=== PATIENT | female | born 1950 | race Caucasian/White ===

== ENCOUNTER 2018-03-24 14:33 | Inpatient (IN) | payer OTHER, MEDICAID ==
[~2018-03-24] VITALS: Ht 165.1 cm; Wt 88.9 kg
--- NOTE | 2018-03-24 14:36 | NUR ---
PT AMBULATECD TO ER BED 05
[2018-03-24 14:40] VITALS: BP 139/86
--- NOTE | 2018-03-24 14:40 | NUR ---
67Y/F BIB SELF C/O SOB TODAY; JUST D/C FROM [place] FOR THE SAME S/S; EXPIRATORY WHZ LOWER LOBES; EVEN AND UNLABORED BREATHING AT THIS TIME; PT IS ON MONITOR AT THIS TIME; 10/10 PAIN SCALE; PAIN AT THE NECK; VSS AT THIS TIME; BED DOWN; BEDRAIL UP X 1; ER MD AWARE AND NOTIFIED OF PT STATUS. HX; ASTHMA COPD, ANXIETY RX; ZOLOFT, KEPRA
[2018-03-24] MEDS ORDERED: ALBUTEROL 0.083% 2.5 MG/3 ML NEBU INH ONE (14:45)
--- NOTE | 2018-03-24 14:46 | NUR ---
Patient being evaluated by physician at bedside.
[2018-03-24] MEDS ORDERED: LORazepam 2 MG/ML VIAL IM ONE (14:50)
[2018-03-24 16:03] LABS: BASOPHILS # (AUTO) 0.1 K/uL (0.00-0.22); BASOPHILS % (AUTO) 1.4 % (0.0-2.0); EOSINOPHILS # (AUTO) 0.2 K/uL (0-0.4); EOSINOPHILS % (AUTO) 2.4 % (0.0-4.0); HEMATOCRIT 39.8 % (36-48); HEMOGLOBIN 12.8 g/dL (12.0-16.0); LYMPHOCYTES # (AUTO) 0.5 K/uL (2.5-16.5); LYMPHOCYTES % (AUTO) 5.9 % (20.5-51.1); MEAN CORPUSCULAR HEMOGLOBIN 24 pg (27-31); MEAN CORPUSCULAR HGB CONC 32 g/dL (33-37); MEAN CORPUSCULAR VOLUME 73.1 fL (80-94); MONOCYTES # (AUTO) 0.2 K/uL (0.8-1.0); MONOCYTES % (AUTO) 1.8 % (1.7-9.3); NEUTROPHILS # (AUTO) 7.4 K/uL (1.8-7.7); NEUTROPHILS % (AUTO) 88.5 % (42.2-75.2); PLATELET COUNT (AUTO) 281 K/uL (140-450); RED BLOOD CELL COUNT(AUTO) 5.45 MIL/uL (4.20-5.40); RED CELL DISTRIBUTION WIDTH 18.8 % (11.6-13.7); WHITE BLOOD COUNT (AUTO) 8.3 K/uL (4.8-10.8)
--- NOTE | 2018-03-24 16:19 | NUR ---
PT DENIES IV MANAGEMENT AT THIS TIME
[2018-03-24] MEDS ORDERED: ONDANSETRON 4 MG/2 ML VIAL IM/IVP PRN (16:20)
[2018-03-24] MEDS ORDERED: HYDROcodone/APAP 7.5/325 MG 1 TAB PO PRN (16:20)
[2018-03-24] MEDS ORDERED: ACETAMINOPHEN 325 MG TAB PO PRN (16:20)
[2018-03-24] MEDS ORDERED: DOCUSATE SODIUM 100 MG GELCAP PO PRN (16:20)
[2018-03-24 16:32] LABS: CARBON DIOXIDE 21.3 mmol/L (21-32); CREATININE 0.8 mg/dL (0.6-1.3); POTASSIUM 3.3 mmol/L (3.5-5.1)
[2018-03-24 16:33] LABS: APPEARANCE,URINE CLEAR (CLEAR); BILIRUBIN,URINE NEGATIVE (NEGATIVE); BLOOD, URINE NEGATIVE (NEGATIVE); COLOR,URINE YELLOW (YELLOW); LEUKOCYTE ESTERASE ,URINE NEGATIVE (NEGATIVE); NITRITE, URINE NEGATIVE (NEGATIVE); PH,URINE 7.5 (5.0-9.0); UGLUCOSE NEGATIVE (NEGATIVE)
[2018-03-24 16:35] LABS: ALBUMIN 3.7 g/dL (3.4-5.0); TOTAL BILIRUBIN 0.5 mg/dL (0.0-1.0)
[2018-03-24 16:46] LABS: PROTHROMBIN TIME 10.4 secs (10.8-13.4)
[2018-03-24 16:48] LABS: BARBITURATE, URINE NEG. ng/ml (NEG <=200); BENZODIAZEPINE, URINE NEG. ng/mL (NEG <=200); CANNABINOID, URINE NEG. ng/mL (NEG <=50); COCAINE, URINE NEG. ng/mL (NEG <=300); OPIATE, URINE NEG. ng/mL (NEG <=2000); PHENCYCLIDINE SCREEN,URINE NEG. ng/mL (NEG <=25)
[2018-03-24 17:00] LABS: FREE T4 (FREE THYROXINE) 1.2 ng/dL (0.76-1.46); MAGNESIUM 1.7 mg/dL (1.8-2.4); PHOSPHORUS 1.3 mg/dL (2.5-4.9); THYROID STIMULATING HORMONE 1.63 uIU/mL (0.34-3.74)
--- NOTE | 2018-03-24 17:25 | NUR ---
Patient will be admitted to care of dr best. Admited to tele floor. Will go to room 106-b. Belongings list completed. Report to tory james.
[2018-03-24] MEDS ORDERED: NITROGLYCERIN 0.4 MG TAB SL PRN (17:30)
--- NOTE | 2018-03-24 17:35 | NUR ---
RECEIVED BEDSIDE REPORT FROM OR NURSE. PATIENT IS AWAKE, ALERT AND ORIENTEDX4. FALL RISK PROTOCOL IN PLACE BECAUSE HX OF FALL. SCABS ON LEGS. IV ON R HAND 24G SALINE LOCK. CLEAN, DRY AND INTACT. ASPIRATION PRECAUTION. PATIENT AMBULATES W ASSIST. NO SIGNS OF DISTRESS ON ROOM AIR. VITALS ARE WITHIN NORMAL LIMITS. MRSA DONE. BED IN LOW POSITION. CALL LIGHT WITHIN REACH. WILL CONTINUE TO MONITOR THE PATIENT
[2018-03-24] MEDS ORDERED: KEP500 PO (17:47)
[2018-03-24] MEDS ORDERED: SERT100T PO (17:47)
[2018-03-24] MEDS ORDERED: ALBU0.0912 IH (17:47)
[2018-03-24] MEDS ORDERED: ZOLPIDEM 5 MG TAB PO PRN (17:50)
--- NOTE | 2018-03-24 18:00 | NUR ---
SAID OK TO GIVE PATIENT ICE CHIPS. PATIENT TOLERATING WELL. BED IN LOW POSITION. CALL LIGHT WITHIN REACH. WILL CONTINUE TO MONITOR
[2018-03-24 18:10] VITALS: BP 129/88
[2018-03-24] MEDS ORDERED: MAGNESIUM OXIDE 400 MG TAB PO SCH (18:45)
[2018-03-24] MEDS ORDERED: POTASSIUM CHLORIDE 10 MEQ TABER PO SCH (19:00)
[2018-03-24] MEDS ORDERED: SODIUM PHOS / POTASSIUM PHOS 1 PKT PDR PO SCH (19:00)
--- NOTE | 2018-03-24 19:05 | NUR ---
GAVE BEDSIDE REPORT TO WARP PREPARER NURSE. PATIENT ENDORSED IN STABLE CONDITION.
--- NOTE | 2018-03-24 19:10 | NUR ---
RECEIVED PT FROM WAI HUGHES AAOX4 ON BED REST DENIES ANY CHEST PAIN ON IV ON RT HAND INFUSING , ON TELEMETRY ST PT IS ORIENTED TO THE FLOOR CALL LIGHT WITHIN REACH
[2018-03-24] MEDS: ALBUTEROL SULFATE/IPRATROPIU 3 ML SOL IH SCH (19:30)
[2018-03-24] MEDS: NACL 0.9% 1,000 ML IV SCH (19:33)
[2018-03-24 20:00] VITALS: BP 131/85
[2018-03-24] MEDS: METOPROLOL 25 MG TAB PO SCH (20:28)
[2018-03-24] MEDS: levETIRAcetam 500 MG TAB PO SCH (20:29)
[2018-03-24] MEDS: LORazepam 0.5 MG TAB PO PRN (20:41)
--- NOTE | 2018-03-24 20:46 | NUR ---
PATIENT STATES SHE USES 2L OXYGEN VIA NC AT NIGHT TO SLEEP, SPOKE W/ DR LAYTON AND NASAL CANNULA 2L SETUP FOR USE WHEN PATIENT SLEEPS
[2018-03-25] VITALS: BP 96/60
--- NOTE | 2018-03-25 | NUR ---
REMAIN STBLE NOT DISTRESS NOTED ON TELEMETRY SR
[2018-03-25] MEDS: ALBUTEROL SULFATE/IPRATROPIU 3 ML SOL IH SCH ×4 (00:26→19:06)
[2018-03-25] MEDS: LORazepam 0.5 MG TAB PO PRN ×3 (03:18→18:41)
[2018-03-25 04:00] VITALS: BP 115/61
--- NOTE | 2018-03-25 04:00 | NUR ---
SPONGE BATH GIVEN LINEN CHANGED REPOSITIONED DENIES ANY CHEST PAIN ON TELEMETRY SR
--- NOTE | 2018-03-25 05:27 | NUR ---
PT SLEEPING WELL AFTER LORAZEPAN GIVEN NOT PAIN NOT DISTRESS NOTED
--- NOTE | 2018-03-25 06:27 | NUR ---
PT AWAKE AAAX4 DENIES ANY CHEST PAIN, ON TELEMETRY SR PT WILL BE ENDORSED TO DAY SHIFT NURSE FOR CONTINUITY OF CARE
--- NOTE | 2018-03-25 06:44 | NUR ---
PT REFUSED BREATHING TX DUE TO FEELING NAUSEA SHE WILL CALL FOR TX WHEN READY
[2018-03-25 07:04] LABS: BASOPHILS % (AUTO) 0.3 % (0.0-2.0); EOSINOPHILS % (AUTO) 0.5 % (0.0-4.0); HEMATOCRIT 35.1 % (36-48); HEMOGLOBIN 11.4 g/dL (12.0-16.0); LYMPHOCYTES # (AUTO) 1.8 K/uL (2.5-16.5); LYMPHOCYTES % (AUTO) 20.5 % (20.5-51.1); MEAN CORPUSCULAR HEMOGLOBIN 24 pg (27-31); MEAN CORPUSCULAR HGB CONC 33 g/dL (33-37); MEAN CORPUSCULAR VOLUME 73.5 fL (80-94); MONOCYTES # (AUTO) 0.8 K/uL (0.8-1.0); MONOCYTES % (AUTO) 8.7 % (1.7-9.3); PLATELET COUNT (AUTO) 263 K/uL (140-450); RED BLOOD CELL COUNT(AUTO) 4.77 MIL/uL (4.20-5.40); RED CELL DISTRIBUTION WIDTH 18.5 % (11.6-13.7); WHITE BLOOD COUNT (AUTO) 8.6 K/uL (4.8-10.8)
[2018-03-25 07:17] LABS: ANION GAP 9.3 (8-16); CARBON DIOXIDE 25.4 mmol/L (21-32); CREATININE 0.7 mg/dL (0.6-1.3); POTASSIUM 3.7 mmol/L (3.5-5.1)
[2018-03-25 07:43] LABS: MAGNESIUM 1.8 mg/dL (1.8-2.4)
[2018-03-25 08:00] VITALS: BP 103/61
[2018-03-25] MEDS: NACL 0.9% 1,000 ML IV SCH ×2 (08:58→21:05)
[2018-03-25] MEDS: SODIUM PHOS / POTASSIUM PHOS 1 PKT PDR PO SCH ×3 (09:00→18:39)
[2018-03-25] MEDS: LORATADINE 10 MG TAB PO SCH (09:00)
[2018-03-25] MEDS: METOPROLOL 25 MG TAB PO SCH ×2 (09:00→20:26)
[2018-03-25] MEDS: levETIRAcetam 500 MG TAB PO SCH ×2 (09:00→20:27)
[2018-03-25] MEDS: FAMOTIDINE 20 MG TAB PO SCH (09:00)
[2018-03-25] MEDS: SERTRALINE 50 MG TAB PO SCH (09:00)
[2018-03-25] MEDS: POTASSIUM CHLORIDE 10 MEQ TABER PO SCH (09:00)
[2018-03-25] MEDS: MAGNESIUM OXIDE 400 MG TAB PO SCH (09:00)
[2018-03-25] MEDS: ECOTRIN 81 MG TABEC PO SCH (09:00)
[2018-03-25] MEDS: LISINOPRIL 5 MG TAB PO SCH (09:00)
[2018-03-25] MEDS: ALBUTEROL SULFATE/IPRATROPIU 3 ML SOL IH PRN (09:22)
--- NOTE | 2018-03-25 11:00 | NUR ---
Patient having anxiety, and received ativan 0.5 mg po per do. She is resting quietly after receiving the ativan. Darrick Boyd RN
[2018-03-25 12:00] VITALS: BP 105/67
--- NOTE | 2018-03-25 15:00 | NUR ---
Patient received tylenol 650 mg earlier, for headache, 04/02, and pain is resolving. Patient is resting quietly in bed. Darrick Boyd RN
[2018-03-25] MEDS ORDERED: SIMETHICONE 80 MG TAB.CHEW PO PRN (16:30)
[2018-03-25] MEDS ORDERED: ATORVASTATIN 20 MG TAB PO SCH (17:00)
--- NOTE | 2018-03-25 18:30 | NUR ---
Patient having anxiety, and received ativan 0.5mg po per do. she has anxiety due to her sbp running low. I did tell her not to worry and that her sbp 114, when I took it. Darrick Boyd RN
--- NOTE | 2018-03-25 19:30 | NUR ---
RECEIVED REPORT FROM DAY SHIFT NURSE, SIMONE. PT IN STABLE CONDITION. PT IS A/O X4. RESTING IN BED COMFORTABLY WITH NO COMPLAINTS OF PAIN. PT ON RA. SKIN IS INTACT. IV ACCESS IN R HAND 24G WITH IVF RUNNING PER MD ORDERS. BED IS LOCKED, LOW POSITION WITH SIDE RAILS UP X2. BOARD UPDATED. CALL LIGHT IS WITHIN REACH. WILL CONTINUE TO MONITOR PT.
[2018-03-25 20:00] VITALS: BP 111/71
--- NOTE | 2018-03-25 20:50 | NUR ---
NEW IV STARTED IN L HAND 24G. IV IS PATENT AND INTACT. PT TOLERATED WELL. OTHER IV DISCONTINUED. WILL CONTINUE TO MONITOR PT.
[2018-03-25] MEDS ORDERED: MONTELUKAST SODIUM 10 MG TAB PO SCH (21:30)
--- NOTE | 2018-03-25 21:44 | NUR ---
ADMINISTERED ORDERED MEDICATION. PT TOLERATED WELL. WILL CONTINUE TO MONITOR.
[2018-03-26] VITALS: BP 102/55
[2018-03-26] MEDS: ALBUTEROL SULFATE/IPRATROPIU 3 ML SOL IH SCH ×4 (00:03→19:48)
--- NOTE | 2018-03-26 00:04 | NUR ---
PATIENT STATED SHE DOES NOT WANT DUONEB TREATMENT AT THIS TIME AND TO TOLD OFF SINCE SHE RECEIVED SINGULAIR MEDICATION EARLIER AND FEELS GOOD AND WANT TO SLEEP
--- NOTE | 2018-03-26 00:06 | NUR ---
PT REFUSED BREATHING TREATMENT D/T PT STATES SHE FEELS GOOD AFTER TAKING SINGULAIR MEDICATION. PT JUST WANTS TO SLEEP.
[2018-03-26] MEDS: LORazepam 0.5 MG TAB PO PRN ×4 (00:41→23:07)
--- NOTE | 2018-03-26 00:41 | NUR ---
PT C/O ANXIETY. ATIVAN GIVEN. WILL CONTINUE TO MONITOR PT.
--- NOTE | 2018-03-26 02:33 | NUR ---
PT ASLEEP IN BED. NO SIGNS OR SYMPTOMS OF DISTRESS. WILL CONTINUE TO MONITOR.
[2018-03-26 04:00] VITALS: BP 105/62
--- NOTE | 2018-03-26 04:05 | NUR ---
VS STABLE. PT SLEEPING WELL IN BED. NO SIGNS OF DISTRESS. ALL NEEDS ARE MET AT THIS TIME. WILL CONTINUE TO MONITOR.
[2018-03-26 06:54] LABS: ANION GAP 9.7 (8-16); CARBON DIOXIDE 25.2 mmol/L (21-32); CREATININE 0.7 mg/dL (0.6-1.3); POTASSIUM 3.9 mmol/L (3.5-5.1)
[2018-03-26 06:54] LABS: HEMATOCRIT 32.8 % (36-48); HEMOGLOBIN 10.4 g/dL (12.0-16.0); MEAN CORPUSCULAR HEMOGLOBIN 24 pg (27-31); MEAN CORPUSCULAR HGB CONC 32 g/dL (33-37); MEAN CORPUSCULAR VOLUME 74.2 fL (80-94); PLATELET COUNT (AUTO) 198 K/uL (140-450); RED BLOOD CELL COUNT(AUTO) 4.42 MIL/uL (4.20-5.40); RED CELL DISTRIBUTION WIDTH 19.1 % (11.6-13.7); WHITE BLOOD COUNT (AUTO) 7.1 K/uL (4.8-10.8)
[2018-03-26 07:19] LABS: EOSINOPHILS % (MANUAL) 4 % (0-4); LYMPHOCYTES % (MANUAL) 42 % (20-46); MONOCYTES % (MANUAL) 9 % (5-12)
--- NOTE | 2018-03-26 07:19 | NUR ---
ENDORSED PT TO DAY SHIFT NURSE FOR CONTINUITY OF CARE. PT IN STABLE CONDITION.
--- NOTE | 2018-03-26 07:20 | NUR ---
RECEIVED REPORT FROM THE PIANO ACCOMPANIST NURSE AT BEDSIDE FOR CONTINUITY OF CARE. PT IS AWAKE AND ORIENTED. INTRODUCED MYSELF AND UPDATED THE BOARD. PT IS ON TELE, AMBULATORY. ON NC 2L O2, WHEEZING. LBM: 03/25/18. L HAND 24G NS @ 60ML. V/S WITHIN NORMAL RANGE. DENIES PAIN. SKIN INTACT. C/O WETNESS AND REDNESS UNDER ARMPIT AND UNDER BREAST. WILL ASK MD FOR NYSTATIN POWDER. PER MX, CARDIAC IS CLEARED. WILL BE D/C TOMORROW. PT EXPRESSES SHE NEEDS ASSISTANCE W/ SS TO GET INTO A NEW SENIOR HOUSING. WILL CONTINUE MONITOR PT.
[2018-03-26 08:00] VITALS: BP 138/79
[2018-03-26] MEDS: levETIRAcetam 500 MG TAB PO SCH ×2 (08:37→20:09)
[2018-03-26] MEDS: METOPROLOL 25 MG TAB PO SCH ×2 (08:37→20:09)
[2018-03-26] MEDS: ECOTRIN 81 MG TABEC PO SCH (08:38)
[2018-03-26] MEDS: POTASSIUM CHLORIDE 10 MEQ TABER PO SCH (08:38)
[2018-03-26] MEDS: FAMOTIDINE 20 MG TAB PO SCH (08:38)
[2018-03-26] MEDS: MAGNESIUM OXIDE 400 MG TAB PO SCH (08:39)
[2018-03-26] MEDS: LORATADINE 10 MG TAB PO SCH (08:39)
[2018-03-26] MEDS: SERTRALINE 50 MG TAB PO SCH (08:39)
[2018-03-26] MEDS: LISINOPRIL 5 MG TAB PO SCH (08:39)
[2018-03-26] MEDS: SODIUM PHOS / POTASSIUM PHOS 1 PKT PDR PO SCH ×2 (08:40→12:04)
--- NOTE | 2018-03-26 08:51 | NUR ---
ADMINISTERED MORNING MEDS. PT TOLERATED WELL. DR NARVAEZ CAME IN AND ASSESSED PT. WILL CONTINUITY OF CARE.
--- NOTE | 2018-03-26 10:34 | NUR ---
PATIENT HAS BEEN SCREENED AND CATEGORIZED MODERATE NUTRITION RISK. PATIENT WILL BE SEEN WITHIN 3-5 DAYS OF ADMISSION. 03/27/18 03/29/18 FAIZA PATEL MBA, RD
[2018-03-26] MEDS: NYSTATIN/TRIAMCINOLONE CRM 15 GM TUBE TP SCH ×2 (11:16→20:15)
--- NOTE | 2018-03-26 11:20 | NUR ---
PT REFUSED IVF. DISCONTINUED PT.
[2018-03-26 12:00] VITALS: BP 109/73
--- NOTE | 2018-03-26 12:00 | NUR ---
PT IS HAVING HER ECHO DONE. TECH WITH PT AT BEDSIDE.
--- NOTE | 2018-03-26 13:09 | NUR ---
WOKE PT UP TO GIVE BREATHING TX PT STATED SHE JUST GOT COMFORTABLE AND WANTS TO SLEEP PT HAS NO SIGNS OF DISTRESS NOTED AT THIS TIME
--- NOTE | 2018-03-26 14:22 | NUR ---
PT SLEEPING SOUNDLY. NO SIGNS OF DISTRESS. WILL CONTINUE TO MONITOR PT.
[2018-03-26 16:00] VITALS: BP 99/67
[2018-03-26] MEDS: CALCIUM CARBONATE 500 MG TAB.CHEW PO PRN ×2 (16:01→20:10)
[2018-03-26] MEDS: ALBUTEROL SULFATE/IPRATROPIU 3 ML SOL IH PRN (16:05)
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
[2018-03-26] MEDS: MONTELUKAST SODIUM 10 MG TAB PO SCH (16:38)
[2018-03-26] MEDS: ATORVASTATIN 20 MG TAB PO SCH (16:39)
--- NOTE | 2018-03-26 16:46 | NUR ---
ADMINISTERED SCHEDULED MEDICATION. PT REQUESTED ATIVAN. ADMINISTERED ATIVAN. PT TOLERATED WELL. WILL CONTINUE TO MONITOR PT.
--- NOTE | 2018-03-26 18:00 | NUR ---
DR. BARRY IS HERE TO ASSESS PT.
[2018-03-26] MEDS: NACL 0.9% 1,000 ML IV SCH (18:18)
--- NOTE | 2018-03-26 19:15 | NUR ---
RECEIVED REPORT FROM DAY SHIFT NURSE AT PT BEDSIDE. PT IN STABLE CONDITION. PT IS A/O X4. PT ON NC 2L. SKIN IS INTACT. IV ACCESS IN L HAND 24G. PT CURRENTLY REFUSING ORDERED IVF. PT HAS NO C/O PAIN. BED IS LOCKED, LOW POSITION WITH SIDE RAILS UP X2. BOARD UPDATED. CALL LIGHT IS WITHIN REACH. WILL CONTINUE TO MONITOR PT.
--- NOTE | 2018-03-26 19:15 | NUR ---
ENDORSED PT TO THE SOLAR FIELD INSTALLATION CREW MEMBER NURSE AT BEDSIDE FOR CONTINUITY OF CARE. PT IN STABLE CONDITION.
[2018-03-26 20:00] VITALS: BP 131/66
--- NOTE | 2018-03-26 20:10 | NUR ---
ADMINISTERED ORDERED MEDICATIONS. PT C/O HEARTBURN. TUMS GIVEN. PT TOLERATED WELL. WILL CONTINUE TO MONITOR.
[2018-03-26] MEDS ORDERED: POTASSIUM CHLORIDE 10 MEQ TABER PO SCH (21:00)
--- NOTE | 2018-03-26 23:07 | NUR ---
PT C/O ANXIETY. ATIVAN GIVEN. WILL CONTINUE TO MONITOR PT.
[2018-03-27] VITALS: BP 105/49
--- NOTE | 2018-03-27 00:14 | NUR ---
PT ASLEEP IN BED. NO SIGNS OF DISTRESS. WILL CONTINUE TO MONITOR.
--- NOTE | 2018-03-27 00:59 | NUR ---
PT C/O SOME SOB. RT WILL COME AND DO BREATHING TREATMENT ON PT. WILL CONTINUE TO MONITOR.
[2018-03-27] MEDS: ALBUTEROL SULFATE/IPRATROPIU 3 ML SOL IH SCH ×4 (01:05→19:00)
--- NOTE | 2018-03-27 01:29 | NUR ---
PT NOW ASLEEP IN BED. NO SIGNS OF DISTRESS. WILL CONTINUE TO MONITOR.
[2018-03-27 04:00] VITALS: BP 99/61
--- NOTE | 2018-03-27 04:05 | NUR ---
PT SLEEPING IN BED. NO SIGNS OR SYMPTOMS OF DISTRESS. WILL CONTINUE TO MONITOR PT.
[2018-03-27] MEDS: ALBUTEROL SULFATE/IPRATROPIU 3 ML SOL IH PRN (05:31)
--- NOTE | 2018-03-27 05:45 | NUR ---
NO CHANGE IN CONDITION. WILL CONTINUE TO MONITOR PT.
--- NOTE | 2018-03-27 07:11 | NUR ---
ENDORSED PT TO DAY SHIFT NURSE FOR CONTINUITY OF CARE. PT IN STABLE CONDITION.
--- NOTE | 2018-03-27 07:12 | NUR ---
RECEIVED REPORT FROM THE OTOLARYNGOLOGY SURGEON NURSE AT BEDSIDE FOR CONTINUITY OF CARE. PT IS AWAKE AND ORIENTED. BIT OF BREATH THIS MORNING. NC O2 2L IN PLACE. SKIN INTACT. IV ON L HAND 24G SL. PLAN FOR TODAY: P/T EVAL, ASSISTANCE WITH SS AND TRANSFER TO SNF. WILL CONTINUE TO MONITOR PT.
[2018-03-27 07:51] LABS: BASOPHILS # (AUTO) 0.1 K/uL (0.00-0.22); BASOPHILS % (AUTO) 1.1 % (0.0-2.0); EOSINOPHILS # (AUTO) 1.1 K/uL (0-0.4); EOSINOPHILS % (AUTO) 15.1 % (0.0-4.0); HEMATOCRIT 36.1 % (36-48); HEMOGLOBIN 11.4 g/dL (12.0-16.0); LYMPHOCYTES # (AUTO) 2.7 K/uL (2.5-16.5); LYMPHOCYTES % (AUTO) 36.5 % (20.5-51.1); MEAN CORPUSCULAR HEMOGLOBIN 24 pg (27-31); MEAN CORPUSCULAR HGB CONC 32 g/dL (33-37); MEAN CORPUSCULAR VOLUME 74.2 fL (80-94); MONOCYTES # (AUTO) 0.6 K/uL (0.8-1.0); MONOCYTES % (AUTO) 7.7 % (1.7-9.3); NEUTROPHILS # (AUTO) 2.9 K/uL (1.8-7.7); NEUTROPHILS % (AUTO) 39.6 % (42.2-75.2); PLATELET COUNT (AUTO) 230 K/uL (140-450); RED BLOOD CELL COUNT(AUTO) 4.86 MIL/uL (4.20-5.40); RED CELL DISTRIBUTION WIDTH 18.9 % (11.6-13.7); WHITE BLOOD COUNT (AUTO) 7.4 K/uL (4.8-10.8)
[2018-03-27 07:52] LABS: MAGNESIUM 1.8 mg/dL (1.8-2.4); PHOSPHORUS 4.1 mg/dL (2.5-4.9)
[2018-03-27 08:00] VITALS: BP 116/74
[2018-03-27 08:11] LABS: T4 (THYROXINE) 9.3 ug/dL (4.5-12.0)
[2018-03-27] MEDS: ECOTRIN 81 MG TABEC PO SCH (08:32)
[2018-03-27] MEDS: LORATADINE 10 MG TAB PO SCH (08:32)
[2018-03-27] MEDS: SERTRALINE 50 MG TAB PO SCH (08:32)
[2018-03-27] MEDS: LISINOPRIL 5 MG TAB PO SCH (08:33)
[2018-03-27] MEDS: levETIRAcetam 500 MG TAB PO SCH (08:33)
[2018-03-27] MEDS: MAGNESIUM OXIDE 400 MG TAB PO SCH (08:33)
[2018-03-27] MEDS: FAMOTIDINE 20 MG TAB PO SCH (08:33)
[2018-03-27] MEDS: METOPROLOL 25 MG TAB PO SCH (08:34)
[2018-03-27] MEDS: NYSTATIN/TRIAMCINOLONE CRM 15 GM TUBE TP SCH (08:35)
[2018-03-27] MEDS: LORazepam 0.5 MG TAB PO PRN ×2 (08:40→17:02)
--- NOTE | 2018-03-27 08:42 | NUR ---
ADMINISTERED MORNING MEDS, INCL ATIVAN. PT TOLERATED WELL. WILL CONTINUE TO MONITOR PT.
[2018-03-27] MEDS: NACL 0.9% 1,000 ML IV SCH (08:44)
[2018-03-27 08:53] LABS: ANION GAP 14.6 (8-16); CARBON DIOXIDE 24.6 mmol/L (21-32); CREATININE 0.9 mg/dL (0.6-1.3); POTASSIUM 4.2 mmol/L (3.5-5.1)
--- NOTE | 2018-03-27 09:14 | NUR ---
Housing Liaison Note: Late entry for 03/26/18: Per Joce, patient's tentative discharge plan is to snf for physical therapy. I contacted the following snfs: Siddhartha Michael from [facility] , they don't have a contract with patient's health insurance plan. Per Nando from [facility] , [facility] , and [facility] , they might have a bed available for patient tomorrow 03/27/18 at [facility], I made her aware that patient will need assistance with finding an apartment once she is at snf.
--- NOTE | 2018-03-27 10:05 | NUR ---
CM NOTE ADMISSION CHART REVIEW DONE. INITIAL REVIEW, ORDER FOR SNF FOR PT, [phone] G[facility] # [phone]. PER [facility] [phone] KELLEE CASTAÑEDA, THEIR PHOTOGRAPHIC COLORIST STILL HAS TO REVIEW THE CLINICAL DOCUMENTS AND COME UP WITH A DECISION WHETHER THEY WILL AUTHORIZE SNF OR NOT.
[2018-03-27] MEDS ORDERED: ATI.5 PO (10:23)
[2018-03-27] MEDS ORDERED: LISI-424 PO (10:23)
[2018-03-27] MEDS ORDERED: MONT10TA35 PO (10:23)
[2018-03-27] MEDS ORDERED: ASPI-1173 PO (10:23)
[2018-03-27] MEDS ORDERED: METO25TA PO (10:23)
[2018-03-27 12:00] VITALS: BP 103/50
--- NOTE | 2018-03-27 13:56 | NUR ---
CM NOTE CALLED [facility] [phone] KELLEE CASTAÑEDA TO FOLLOW UP ON ORDER FOR SNF AND PER KELLEE CASTAÑEDA THEIR SHIFT PRODUCTION ASSOCIATE STILL HAS TO REVIEW THE CLINICAL DOCUMENTS TO COME UP WITH THE DECISION WHETHER SNF WILL BE AUTHORIZED OR NOT.
[2018-03-27] MEDS: CALCIUM CARBONATE 500 MG TAB.CHEW PO PRN (14:55)
--- NOTE | 2018-03-27 15:00 | NUR ---
Program Writer Note: I faxed inquiry to [facility], phone number
--- NOTE | 2018-03-27 15:27 | NUR ---
KELLEE NOTE LEFT SEVERAL VM TO [facility] [phone] KELLEE CASTAÑEDA, NO CALL BACK. SPOKE WITH AFTER HOURS [facility] KELLEE Lofton PH# [phone] WHO STATED TO SEND INQUIRY TO SNFs ON THEIR SNF LIST. JOHN KOHLI. RECEIVED CALL FROM PALOMA OF [facility] PH# [phone], WHO STATED THAT THEY CAN ACCEPT PATIENT AND CAN GO TO [facility] TODAY UNDER DR. MARTINEZ. PER KELLEE NARAYANAN, FOR [facility] AUTH# [id number]. PER DEMETRIUS OF [facility] PH# [phone] PATIENT WILL BE PICKED UP AT 1830 TIME TODAY GOING TO [facility]. CHARGE NURSE RAUL KOHLI. SHAW MCKEON AWARE.
--- NOTE | 2018-03-27 15:50 | NUR ---
Laundry Operator Note: Serenity from [facility], phone number is aware patient will be short term and will need assistance with finding an apartment once she is at snf. Serenity also made aware patient stated she receives $878 a month. I met with patient at bedside. I informed her she has been accepted at [facility], she stated she is happy and is in agreement with transfer to [facility] today.
--- NOTE | 2018-03-27 15:59 | NUR ---
CALLED SON AND NOTIFIED HIM OF PT'S TRANSFER TO [facility].
[2018-03-27 16:00] VITALS: BP 118/67
--- NOTE | 2018-03-27 16:02 | NUR ---
CALLED [facility] TO GIVE REPORT. THEY ARE ALL IN A MEETING. WANTED ME TO CALL BACK IN 30 MIN.
[2018-03-27] MEDS: MONTELUKAST SODIUM 10 MG TAB PO SCH (17:01)
[2018-03-27] MEDS: ATORVASTATIN 20 MG TAB PO SCH (17:02)
--- NOTE | 2018-03-27 17:04 | NUR ---
ADMINISTERED SCHEDULED MEDS, INCLUDING ATIVAN. PT TOLERATED WELL. WILL CONTINUE TO MONITOR PT.
--- NOTE | 2018-03-27 17:23 | NUR ---
GAVE REPORT TO ROSLYN AT [facility]. [facility] IS COMING AT 1830. REMOVED PT'S IV. CANNULA INTACT. NO BLEEDING NOTED. REMOVED ALL ID BANDS. GAVE PT A TRANSPORT GOWN. PERSONAL CLOTHES ARE SOILED. TELE MONITOR STILL ON. WILL CONTINUE TO MONITOR PT.
--- NOTE | 2018-03-27 17:55 | NUR ---
DC INSTRUCTIONS ARE GIVEN. PT VERBALIZED UNDERSTANDING. PT SIGNED ALL THE PAPERWORK. PT IS EATING DINNER. AWAITING [facility]'S ARRIVAL. PT IN STABLE CONDITION.
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
--- NOTE | 2018-03-27 19:12 | NUR ---
PT BEING DISCHARGED AND [facility] WAS REMOVED AND WAITING TRANSPORT
--- NOTE | 2018-03-27 19:25 | NUR ---
ENDORSED PT TO THE SUPERVISORY CLERK NURSE AT BEDSIDE FOR CONTINUITY OF CARE. PT IS WITH FAMILY AT BEDSIDE. PT IN STABLE CONDITION.
--- NOTE | 2018-03-27 19:40 | NUR ---
RECEIVED REPORT FROM DAY SHIFT RN FOR CONTINUITY OF CARE. PT IS A/OX4, WITH 2L O2 VIA NASAL CANNULA AT REACH BECAUSE PT TAKES IT OFF WHEN SHE FEELS FINE. PT IS ABLE TO MAKE NEEDS KNOWN, ABLE TO FOLLOW COMMANDS. PT AMBULATES WITH ASSIST AND SKIN IS INTACT. VITAL SIGNS WITHIN NORMAL LIMITS, BP 117/68, P 80, RR 18, SPO2 92% WHILE ON ROOM AIR, AND T 97.7 DEGREES F. TRANSPORTERS ARRIVED I FINISHED TAKING VITAL SIGNS. GAVE REPORT TO TRANSPORTERS AND THEY WENT IN TO GET PT READY.
--- NOTE | 2018-03-27 19:50 | NUR ---
PT LEFT UNIT IN STABLE CONDITION ACCOMPANIED BY TRANSPORTERS VIA GURNEY WITH ALL PERSONAL BELONGINGS IN HAND. TELE MONITOR WAS REMOVED BEFORE PT LEFT ROOM.
== END 2018-03-27 20:20 | DRG 206 ==
LOC: MED 14:33 → MTU 16:24
PROVIDERS: ADMIT Family Medicine; ATTEND Family Medicine
DX: M94.0 Chondrocostal junction syndrome [Tietze] (principal); J45.901 Unspecified asthma with (acute) exacerbation; G40.909 Epilepsy, unspecified, not intractable, without status epilepticus; E87.6 Hypokalemia; E83.39 Other disorders of phosphorus metabolism; F32.9 Major depressive disorder, single episode, unspecified; J44.9 Chronic obstructive pulmonary disease, unspecified; E78.2 Mixed hyperlipidemia; K92.9 Disease of digestive system, unspecified; E83.42 Hypomagnesemia; M60.9 Myositis, unspecified; M19.011 Primary osteoarthritis, right shoulder; F41.1 Generalized anxiety disorder; Z87.11 Personal history of peptic ulcer disease; Z88.8 Allergy status to other drugs, medicaments and biological substances; Z91.010 Allergy to peanuts
CPT/HCPCS: 36415; 71045; 73030; 74018; 80048; 80053; 80305; 81003; 82150; 83036; 83690; 83735; 83880; 84100; 84436; 84439; 84443; 84479; 84484; 85025; 85610; 85730; 87081; 93005; 94640; 96372; 97110; 97140; 99285; J2060; J2405; J7030; J7613; J7620; Q0092

== ENCOUNTER 2018-04-14 06:35 | Inpatient (IN) | payer OTHER, MEDICAID ==
[~2018-04-14] VITALS: Ht 157.5 cm; Wt 81.6 kg
[~2018-04-14 06:35] MED LIST: ALBU0.0912 IH; ASPI-1173 PO; ATI.5 PO; KEP500 PO; METO25TA PO; MONT10TA35 PO; SERT100T PO
--- NOTE | 2018-04-14 06:35 | NUR ---
EDMUND RUDD ALS TO ER BED 08
[2018-04-14 06:36] VITALS: BP 122/89
--- NOTE | 2018-04-14 06:40 | NUR ---
PT BIBA WITH C/O ANXIETY AND CHEST PAIN DUE TO ANXIETY. PT WAS PREVIOUSLY AT [place] FOR ANXIETY. REQUESTED TO COME TO [facility] TO SEE HER CARDIAOLOGIST PER PT. PT WAS ABLE TO AMBULATE FOR [facility] BUT STATED NOT ABLE TO AT THIS TIME. MEDICAL HX IS COPD, ANXIETY, OSTEOPOROSIS. PT RECIEVED BREATHING TREATMENT WITH [facility]. PT ASKED TO GET SOME ATIVAN FOR ANXIETY. A/O X 4.SKIN IS PINK/WARM/DRY; PATIENT STATES PAIN OF 10/10 AT THIS TIME; VSS; PATIENT POSITIONED FOR COMFORT; HOB ELEVATED; BEDRAILS UP X2; BED DOWN. ER MD MADE AWARE OF PT STATUS.
[2018-04-14] MEDS ORDERED: LORazepam 2 MG/ML VIAL IVP ONE (06:50)
[2018-04-14] MEDS ORDERED: DEXAMETHASONE 10 MG/ML VIAL IVP ONE (06:50)
--- NOTE | 2018-04-14 07:19 | NUR ---
REPORT RECEIVED FROM TABATHA BOWLING AT THIS TIME. ASSUMED CARE OF PT.
[2018-04-14] MEDS ORDERED: MAG SULF 2000 MG/WATER PREMIX 50 ML IV ONE (07:55)
[2018-04-14] MEDS ORDERED: methylPREDNISolone SS 125 MG/2 ML VIAL IVP ONE (07:55)
--- NOTE | 2018-04-14 08:18 | NUR ---
RT AT BEDSIDE AT THIS TIME PERFORMING ABG DRAW
--- NOTE | 2018-04-14 08:32 | NUR ---
PT RESTING COMFORTABLY IN [facility] AT THIS TIME W/ VSS, RR EVEN AND UNLABORED. SAFETY PRECAUTIONS IN PLACE. WILL CONTINUE TO MONITOR.
[2018-04-14 09:17] LABS: BASOPHILS % (AUTO) 0.3 % (0.0-2.0); EOSINOPHILS # (AUTO) 0.3 K/uL (0-0.4); EOSINOPHILS % (AUTO) 2.7 % (0.0-4.0); HEMATOCRIT 38.4 % (36-48); HEMOGLOBIN 12.3 g/dL (12.0-16.0); LYMPHOCYTES # (AUTO) 1.5 K/uL (2.5-16.5); LYMPHOCYTES % (AUTO) 13.4 % (20.5-51.1); MEAN CORPUSCULAR HEMOGLOBIN 23 pg (27-31); MEAN CORPUSCULAR HGB CONC 32 g/dL (33-37); MEAN CORPUSCULAR VOLUME 72.6 fL (80-94); MONOCYTES # (AUTO) 0.5 K/uL (0.8-1.0); MONOCYTES % (AUTO) 4.2 % (1.7-9.3); NEUTROPHILS # (AUTO) 8.6 K/uL (1.8-7.7); NEUTROPHILS % (AUTO) 79.4 % (42.2-75.2); PLATELET COUNT (AUTO) 332 K/uL (140-450); RED BLOOD CELL COUNT(AUTO) 5.28 MIL/uL (4.20-5.40); WHITE BLOOD COUNT (AUTO) 10.9 K/uL (4.8-10.8)
--- NOTE | 2018-04-14 09:20 | NUR ---
PT CONTINUE TO REST COMFORTABLY AT THIS TIME W/ VSS, RR EVEN AND UNLABORED. SAFETY PRECAUTIONS IN PLACE. WILL CONITNUE TO MONITOR.
[2018-04-14 09:31] LABS: PROTHROMBIN TIME 10.9 secs (10.8-13.4)
[2018-04-14 09:34] LABS: ALBUMIN 3.4 g/dL (3.4-5.0); ANION GAP 12.2 (8-16); CARBON DIOXIDE 26.8 mmol/L (21-32); CREATININE 0.8 mg/dL (0.6-1.3); TOTAL BILIRUBIN 0.5 mg/dL (0.0-1.0)
--- NOTE | 2018-04-14 10:07 | NUR ---
PT ASLEEP COMFORTABLY IN [facility] AT THIS TIME W/ VSS. RR EVEN AND UNLABORED. SAFETY PRECAUTIONS IN PLACE. WILL CONTINUE TO MONITOR.
[2018-04-14] MEDS: NACL 0.9% 1,000 ML IV SCH (10:18)
[2018-04-14] MEDS ORDERED: ONDANSETRON 4 MG/2 ML VIAL IVP PRN (10:20)
[2018-04-14 10:46] LABS: MAGNESIUM 2.7 mg/dL (1.8-2.4); PHOSPHORUS 2.8 mg/dL (2.5-4.9)
[2018-04-14 11:05] VITALS: BP 127/63
--- NOTE | 2018-04-14 11:05 | NUR ---
PATIENT ARRIVED VIA [facility]. PATIENT ASSISTED TO TRANSFER FROM [facility] TO TELE BED. TELE MONITOR APPLIED TO PATIENT. RECEIVED REPORT FROM Joseluis NURSE. PATIENT HAS AN IV NOTED ON HER RIGHT FOREARM 22G. SET UP PATIENT ON NORMAL SALINE. COLLECTED MRSA SWAB SAMPLE FROM PATIENT. VITAL SIGNS WITHIN NORMAL LIMITS. UPDATED BOARD IN PATIENT'S ROOM. LOWERED BED TO LOWEST SETTING. WILL CONTINUE TO MONITOR PATIENT.
--- NOTE | 2018-04-14 11:05 | NUR ---
Patient will be admitted to care of [facility]. Admited to Tele. Will go to room 107 A. Belongings list completed. Report to MIKE Blanco.
[2018-04-14 12:18] LABS: APPEARANCE,URINE CLEAR (CLEAR); BILIRUBIN,URINE 1+ (NEGATIVE); BLOOD, URINE NEGATIVE (NEGATIVE); COLOR,URINE YELLOW (YELLOW); LEUKOCYTE ESTERASE ,URINE NEGATIVE (NEGATIVE); NITRITE, URINE NEGATIVE (NEGATIVE); UGLUCOSE NEGATIVE (NEGATIVE)
[2018-04-14 12:28] LABS: BARBITURATE, URINE NEG. ng/ml (NEG <=200); BENZODIAZEPINE, URINE NEG. ng/mL (NEG <=200); CANNABINOID, URINE NEG. ng/mL (NEG <=50); COCAINE, URINE NEG. ng/mL (NEG <=300); OPIATE, URINE NEG. ng/mL (NEG <=2000); PHENCYCLIDINE SCREEN,URINE NEG. ng/mL (NEG <=25)
[2018-04-14] MEDS ORDERED: methylPREDNISolone SS 125 MG/2 ML VIAL IVP SCH (13:00)
--- NOTE | 2018-04-14 13:22 | NUR ---
PATIENT ASLEEP AT THIS TIME. WILL CONTINUE TO MONITOR PATIENT.
[2018-04-14] MEDS: ALBUTEROL SULFATE/IPRATROPIU 3 ML SOL IH SCH ×2 (13:55→18:55)
[2018-04-14 16:00] VITALS: BP 129/84
[2018-04-14] MEDS: LORazepam 0.5 MG TAB PO PRN ×2 (16:17→22:36)
--- NOTE | 2018-04-14 16:17 | NUR ---
PATIENT PRESENTS WITH ANXIETY AT THIS TIME. ADMINISTERED ATIVAN TO PATIENT FOR ANXIETY.
--- NOTE | 2018-04-14 18:55 | NUR ---
PATIENT IS RESTING AT THIS TIME. WILL CONTINUE TO MONITOR PATIENT.
--- NOTE | 2018-04-14 19:30 | NUR ---
GAVE REPORT TO NIGHTSHIFT NURSE AT BEDSIDE. PATIENT IN STABLE CONDITION.
--- NOTE | 2018-04-14 19:30 | NUR ---
GAVE REPORT TO NIGHTSPRFT NURSE AT BEDSIDE. PATIENT IN STABLE CONDITION. Addendum: 04/14/18 at 1940 by Francis Roque II, RN *CHARTED TWICE. DISREGARD.
--- NOTE | 2018-04-14 19:35 | NUR ---
RECEIVED FROM AM RN IN BED AWAKE AND ALERT. ABLE TO VERBALIZE WELL. RE-ORIENTED TO CALL LIGHT USE . DENIES ANY PAIN AT THIS TIME. PT. REQUESTED TO HAVE SEQUENTIALS TAKEN OUT. STATED THAT IT HURTS HER LEFGS AND THAT SHE CAN WALK ALRIGHT AND THAT SHE WILL KEEP MOVING LEGS . PROS AND CONS WITH OUT IT EXPLAINED. TELEMETRY MONITORING. PT. DX. OF COPD EXACERBATION AND ANXIETY. AFEBRILE.
[2018-04-14] MEDS ORDERED: KCL 20 MEQ/WATER INJ PREMIX 100 ML IV ONE (19:50)
[2018-04-14] MEDS: levETIRAcetam 500 MG TAB PO SCH (20:46)
[2018-04-14] MEDS: MONTELUKAST SODIUM 10 MG TAB PO SCH (20:47)
[2018-04-14 21:05] VITALS: BP 117/63
--- NOTE | 2018-04-14 22:40 | NUR ---
NEW IVF SITE INSERTED BY CHARGE NURSE TO RIGHT FOREARM #24, WITH GOOD BLOOD RETURN RT PREVIOUS IVF SITE PAINFUL PER PT. DISCONTINUED WITH TIP INTACT. TOLERATED WELL. PT. MEDICATED WITH ATIVAN P.O. 0.5 MG REQUESTED. DX. ANXIETY. ABLE TO VERBALIZE NEEDS WELL. CALL LIGHT WITH IN REACH AND ABLE TO USE IT. TELEMETRY MONITORING.
--- NOTE | 2018-04-15 00:10 | NUR ---
PT. AWAKE AND ASSISTED TO RESTROOM INSIDE ROOM. ABLE TO WALK BY HERSELF NOTED. STILL ON STANDBY ASSIST. ABLE TO VERBALIZE NEEDS WELL. CALL LIGHT WITH IN REACH. TELEMETRY MONITORING.
[2018-04-15] MEDS: ALBUTEROL SULFATE/IPRATROPIU 3 ML SOL IH PRN (00:26)
[2018-04-15 00:34] VITALS: BP 119/59
--- NOTE | 2018-04-15 01:57 | NUR ---
SLEEPING AT TH IS TIME. CALL LIGHT WITH IN REACH. NO RESTLESSNESS NOTED.
[2018-04-15 04:30] VITALS: BP 116/60
--- NOTE | 2018-04-15 04:45 | NUR ---
SLEEPING WELL. NO SOB. BREATHING TREATMENTS RENDERED BY RESPIRATORY THERAPIST. ABLE TO VERBALIZE NEEDS WELL. TELEMETRY MONITORING. CALL LIGHT WITH IN REACH.
[2018-04-15] MEDS: NACL 0.9% 1,000 ML IV SCH ×2 (05:16→13:33)
[2018-04-15] MEDS: LORazepam 0.5 MG TAB PO PRN ×3 (05:43→21:01)
[2018-04-15 07:04] LABS: BASOPHILS % (AUTO) 0.2 % (0.0-2.0); EOSINOPHILS # (AUTO) 0.1 K/uL (0-0.4); EOSINOPHILS % (AUTO) 0.6 % (0.0-4.0); HEMATOCRIT 33.2 % (36-48); HEMOGLOBIN 10.9 g/dL (12.0-16.0); LYMPHOCYTES # (AUTO) 2.8 K/uL (2.5-16.5); LYMPHOCYTES % (AUTO) 25.9 % (20.5-51.1); MEAN CORPUSCULAR HEMOGLOBIN 24 pg (27-31); MEAN CORPUSCULAR HGB CONC 33 g/dL (33-37); MEAN CORPUSCULAR VOLUME 72.7 fL (80-94); MONOCYTES # (AUTO) 0.8 K/uL (0.8-1.0); MONOCYTES % (AUTO) 7.3 % (1.7-9.3); NEUTROPHILS # (AUTO) 7.2 K/uL (1.8-7.7); PLATELET COUNT (AUTO) 290 K/uL (140-450); RED BLOOD CELL COUNT(AUTO) 4.57 MIL/uL (4.20-5.40); RED CELL DISTRIBUTION WIDTH 18.8 % (11.6-13.7)
[2018-04-15 07:24] LABS: ANION GAP 12.9 (8-16); CARBON DIOXIDE 24.3 mmol/L (21-32); CREATININE 0.8 mg/dL (0.6-1.3); POTASSIUM 3.2 mmol/L (3.5-5.1)
--- NOTE | 2018-04-15 07:25 | NUR ---
PT. REQUESTED FOR ATIVAN X 2 THIS SHIFT. SLEEPING AT THIS TIME. ABLE TO AMBULATE TO RESTROOM. ENDORSED TO THE NEXT RN FOR CONTINUITY OF CARE. TELEMETRY MONITORING.
--- NOTE | 2018-04-15 07:25 | NUR ---
RECEIVED REPORT FROM NIGHTSHIFT NURSE. PATIENT ON 2.5 L O2 VIA NC. PATIENT PRESENTS IN SEMI-FOWLERS POSITION ASLEEP. NO DISTRESS NOTED. NO PAIN NOTED. PATIENT NEW IV LOCATED ON LEFT FOREARM 24 G RUNNING NS AT 50 ML/HR. PATIENT IS AROUSABLE. BED IN LOWEST POSITION. SAFETY MEASURES ENSURED. WILL CONTINUE TO MONITOR PATIENT.
[2018-04-15 07:45] LABS: FREE T4 (FREE THYROXINE) 0.81 ng/dL (0.76-1.46); MAGNESIUM 2.4 mg/dL (1.8-2.4); PHOSPHORUS 3.4 mg/dL (2.5-4.9); THYROID STIMULATING HORMONE 1.22 uIU/mL (0.34-3.74)
[2018-04-15 08:00] VITALS: BP 114/64
[2018-04-15] MEDS: ALBUTEROL SULFATE/IPRATROPIU 3 ML SOL IH SCH ×3 (08:14→19:08)
--- NOTE | 2018-04-15 08:49 | NUR ---
PATIENT HAS BEEN SCREENED AND CATEGORIZED LOW NUTRITION RISK. PATIENT WILL BE SEEN WITHIN 7 DAYS OF ADMISSION. 04/21/18 Alen Harris MBA, RD
[2018-04-15] MEDS ORDERED: SERTRALINE 50 MG TAB PO SCH (09:00)
[2018-04-15] MEDS ORDERED: HYDROcodone/APAP 5/325 MG 1 TAB TAB PO PRN (09:00)
[2018-04-15] MEDS: levETIRAcetam 500 MG TAB PO SCH ×2 (09:07→21:01)
[2018-04-15] MEDS: ASPIRIN 81 MG TAB.CHEW PO SCH (09:07)
[2018-04-15] MEDS: amLODIPine 5 MG TAB PO SCH (09:08)
[2018-04-15] MEDS ORDERED: POTASSIUM CHLORIDE 10 MEQ TABER PO SCH (09:15)
[2018-04-15] MEDS: ACETAMINOPHEN 325 MG TAB PO PRN (09:33)
--- NOTE | 2018-04-15 09:33 | NUR ---
PATIENT COMPLAINS OF A HEADACHE. ADMINISTERED TYLENOL TO PATIENT. PATIENT RATES PAIN AT A 2.
--- NOTE | 2018-04-15 10:47 | NUR ---
PATIENT RESTING AT THIS TIME. NO DISTRESS NOTED. WILL CONTINUE TO MONITOR PATIENT.
--- NOTE | 2018-04-15 11:25 | NUR ---
PATIENT RESTING AT THIS TIME. NO DISTRESS NOTED. WILL CONTINUE TO MONITOR PATIENT.
[2018-04-15 12:00] VITALS: BP 99/53
--- NOTE | 2018-04-15 12:48 | NUR ---
PATIENT PRESENTS WITH ANXIETY. ADMINISTERD .5 MG TO PATIENT. RE-EXPLAINED TO PATIENT THE BENEFITS OF TAKING POTASSIUM AND HOW IT DEALS WITH THE HEART. PATIENT VERBALIZED UNDERSTANDING. WILL CONTINUE TO MONITOR PATIENT.
--- NOTE | 2018-04-15 14:55 | NUR ---
PATIENT IS RESTING AT THIS TIME. NO DISTRESS NOTED. WILL CONTINUE TO MONITOR PATIENT.
[2018-04-15 16:00] VITALS: BP 104/52
--- NOTE | 2018-04-15 17:01 | NUR ---
PATIENT REQUESTED TO BE TAKEN OFF IV FLUIDS. PATIENT SAYS, "I NEED A BREAK FROM IT. I WANT TO BE ABLE TO TURN MORE FREELY". EXPLAINED THE BENEFITS OF FLUIDS TO PATIENT. PATIENT INSISTED ON BEING DISCONNECTED. WILL CONTINUE TO MONITOR PATIENT.
--- NOTE | 2018-04-15 19:19 | NUR ---
CONNECTED PATIENT BACK TO IV LINE. GAVE REPORT TO NIGHTSHIFT NURSE. PATIENT IN STABLE CONDITION.
--- NOTE | 2018-04-15 19:20 | NUR ---
RECEIVED FROM AM RN IN BED WITH RESPIRATORY THERAPIST AT BEDSIDE. PT. DOING BREATHING TREATMENT SCHEDULED. IVF SITE INTACT AND NO INFILTRATION NOTED. DENIES PAIN TO IVF SITE. USES CALL LIGHT FOR HELP . A/O X 4. ROM X 4. ENCOURAGED TO CALL FOR ANY HELP SHE MAY NEED. CARE PLANS FOR THE NIGHT DISCUSSED WITH HER. ON TELEMETRY MONITORING.
[2018-04-15 20:50] VITALS: BP 114/62
[2018-04-15] MEDS: MONTELUKAST SODIUM 10 MG TAB PO SCH (21:01)
[2018-04-15] MEDS: NYSTATIN/TRIAMCINOLONE CRM 15 GM TUBE TP SCH (21:04)
--- NOTE | 2018-04-16 00:30 | NUR ---
AWAKE AND ASSISTED BY NON PROFIT FINANCIAL CONTROLLER TO GO RESTROOM TO URINATE. PT. ABLE TO VERBALIZE NEEDS WELL. NO SOB AT THIS TIME. DENIES PAIN.
[2018-04-16 01:33] VITALS: BP 116/59
[2018-04-16] MEDS: ALBUTEROL SULFATE/IPRATROPIU 3 ML SOL IH PRN (02:07)
--- NOTE | 2018-04-16 02:17 | NUR ---
AWAKE AT THIS TIME. ON BREATHING TREATMENTS.
--- NOTE | 2018-04-16 04:00 | NUR ---
SLEEPING WELL. WITH BREATHING TREATMENTS ORDERED.
[2018-04-16] MEDS ORDERED: methylPREDNISolone SS 125 MG/2 ML VIAL IVP SCH (05:00)
--- NOTE | 2018-04-16 06:15 | NUR ---
PT. ASSISTED TO REST ROOM TO URINATE. NO BM. URINATED AGAIN. ABLE TO VERBALIZE NEEDS WELL. BREATHING TREATMENTS ON GOING. PT. NEEDS ATTENDED TOO . DENIES ANY PAIN.
[2018-04-16] MEDS: ALBUTEROL SULFATE/IPRATROPIU 3 ML SOL IH SCH ×3 (06:53→19:29)
--- NOTE | 2018-04-16 07:25 | NUR ---
REPORT RECEIVED FROM MATCH UP PERSON NURSE, PT AWAKE ALERT, RESP EVEN UNLABORED, ON 2L NC, SKIN WARM DRY COLOR WNL, PT C/O BACK PAIN, REQUESTS TYLENOL, WILL MEDICATE, PLAN OF CARE REVIEWED, ALL SAFETY MEASURES IN PLACE, WILL CONTINUE TO MONITOR.
[2018-04-16 07:30] LABS: BASOPHILS % (AUTO) 0.2 % (0.0-2.0); EOSINOPHILS # (AUTO) 0.6 K/uL (0-0.4); EOSINOPHILS % (AUTO) 6.5 % (0.0-4.0); HEMATOCRIT 32.3 % (36-48); HEMOGLOBIN 10.3 g/dL (12.0-16.0); LYMPHOCYTES # (AUTO) 3.4 K/uL (2.5-16.5); LYMPHOCYTES % (AUTO) 37.8 % (20.5-51.1); MEAN CORPUSCULAR HEMOGLOBIN 23 pg (27-31); MEAN CORPUSCULAR HGB CONC 32 g/dL (33-37); MEAN CORPUSCULAR VOLUME 73.2 fL (80-94); MONOCYTES # (AUTO) 0.7 K/uL (0.8-1.0); MONOCYTES % (AUTO) 7.3 % (1.7-9.3); NEUTROPHILS # (AUTO) 4.3 K/uL (1.8-7.7); NEUTROPHILS % (AUTO) 48.2 % (42.2-75.2); PLATELET COUNT (AUTO) 260 K/uL (140-450); RED BLOOD CELL COUNT(AUTO) 4.42 MIL/uL (4.20-5.40)
[2018-04-16 08:00] VITALS: BP 107/71
[2018-04-16] MEDS: levETIRAcetam 500 MG TAB PO SCH ×2 (08:05→20:12)
[2018-04-16] MEDS: ASPIRIN 81 MG TAB.CHEW PO SCH (08:05)
[2018-04-16] MEDS: ACETAMINOPHEN 325 MG TAB PO PRN ×2 (08:05→18:53)
[2018-04-16] MEDS: amLODIPine 5 MG TAB PO SCH (08:06)
[2018-04-16] MEDS: NYSTATIN/TRIAMCINOLONE CRM 15 GM TUBE TP SCH ×2 (08:07→20:12)
[2018-04-16] MEDS: ESCITALOPRAM 20 MG TAB PO SCH (08:38)
[2018-04-16 08:44] LABS: ANION GAP 11.5 (8-16); CARBON DIOXIDE 23.9 mmol/L (21-32); CREATININE 0.7 mg/dL (0.6-1.3); POTASSIUM 3.4 mmol/L (3.5-5.1)
[2018-04-16 08:49] LABS: MAGNESIUM 2.1 mg/dL (1.8-2.4); PHOSPHORUS 3.6 mg/dL (2.5-4.9)
[2018-04-16] MEDS ORDERED: QUEtiapine FUMARATE 25 MG TAB PO SCH ×2 (09:30→21:00)
[2018-04-16] MEDS: MULTIVITAMIN 1 TAB PO SCH (10:03)
--- NOTE | 2018-04-16 11:11 | NUR ---
CM NOTE ADMISSION CHART REVIEW DONE. [phone] GARRY # [phone].
--- NOTE | 2018-04-16 11:30 | NUR ---
PT SLEEPING QUIETLY IN NAD. WILL CONTINUE TO MOTNIR
--- NOTE | 2018-04-16 13:02 | NUR ---
PT UP IN BATHROOM, RETURNED TO BED WITH STEADY GAIT WITHOUT ASSIST, STATES SHE JUST WOKE UP WITH BAD NIGHTMARE, PT ASKS TO KEEP HER AWAKE. MICHELLE OPENED, RT AT BEDSIDE FOR QUAN AZUL.
--- NOTE | 2018-04-16 13:46 | NUR ---
PT REQUESTS TO SPEAK WITH REGARDING HER NIGHTMARE. DR NARVAEZ MADE AWARE.
--- NOTE | 2018-04-16 15:57 | NUR ---
PT SITTING UP QUIETLY IN NAD, RESP EVEN UNLABORED ON RA, DENIES PAIN OR DISCOMFORT, IVF INFUSING WELL, SITE CLEAR, PT APPEARS MUCH CALMER NOW, DENIES ANY IMMEDIATE NEEDS, VITALS STABLE WILL CONTINUE TO MONITOR
[2018-04-16 16:00] VITALS: BP 108/72
[2018-04-16] MEDS: LORazepam 0.5 MG TAB PO PRN (16:50)
--- NOTE | 2018-04-16 16:54 | NUR ---
ATIVAN GIVEN REQUESTED BY PT AND DR BRICE HINES AT BEDSIDE, POC DISCUSSED, PT REPEATEDLY STATES "I DON'T KNOW WHAT TO DO, I DON'T KNOW WHAT'S GOING ON ANYMORE, IM CHRIS STRESSED" REASURANCE PROVIDED, PT DENIES ANY IMMEDIATE NEEDS, PT ENCOURAGED TO CALL NURSES FOR ANY NEEDS, WILL CONTINUE TO MONITOR.
--- NOTE | 2018-04-16 17:25 | NUR ---
Cinnamon Grinder Note: Per Lori from [facility] , they don't have a contract with patient's health insurance plan. Per Alee from [facility] , they don't have a contract with patient's health insurance plan. I faxed inquiry to the following [place] [facility] facilities: [facility] , [facility] and [facility] .
--- NOTE | 2018-04-16 18:52 | NUR ---
TYLENOL GIVEN FOR BILAT KNEE PAIN, PT STATES "DOCTOR WANTS ME TO GO TO A FACILITY BUT I DON'T WANT TO GO, I WANT PHYSICAL THERAPY HERE AND GO HOME BEFORE 04/25 SO i CAN PAY MY RENT. IF I GO TO A FACILITY I DON'T KNOW WHEN I GET TO LEAVE THERE AND I CAN'T MISS PAYING MY RENT ON 04/25, SO I JUST WANT TO GO HOME TOMORROW IF DOCTOR CAN'T DO PHYSICAL THERAPY HERE AT THIS HOSPITAL" PT WAS REASSURED THAT NO TRNASFER WILL HAPPEN TONIGHT. WILL NOTIFY AND KELLEE REGARDING HER WISHES.
--- NOTE | 2018-04-16 19:30 | NUR ---
RECEIVED REPORT FROM DAYSALFT NURSE TINO AT BEDSIDE FOR CONTINUITY OF CARE. IV NOTED LFA SALINE LOCK PER PT REQUEST. NO SOB NO S/S OF DISTRESS ON RA. BED LOWERED CALL LIGHT WITHIN REACH WILL CONTINUE TO MONITOR.
--- NOTE | 2018-04-16 20:00 | NUR ---
PT HAS ORDER FOR NS 5OML/HR BUT PT REFUSED IV FLUIDS AT THIS TIME WILL CONTINUE TO MONITOR.
[2018-04-16] MEDS: MONTELUKAST SODIUM 10 MG TAB PO SCH (20:12)
[2018-04-16] MEDS: NACL 0.9% 1,000 ML IV SCH (22:18)
--- NOTE | 2018-04-16 23:06 | NUR ---
PT 1 HR AGO WAS REQUESTING ADIVAN AND I LET HER KNOW SHE ISNT ABLE TO GET HER NEXT DOSE UNTIL 1050 PM. WENT TO ASSESS PT. PT IS SLEEPING NO SOB NO S/S OF DISTRESS ON RA. WILL CONTINUE TO MONITOR.
[2018-04-17] VITALS: BP 124/65
--- NOTE | 2018-04-17 03:11 | NUR ---
NO SOB NO S/S OF DISTRESS ON RA. WILL CONTINUE TO MONITOR.
[2018-04-17] MEDS ORDERED: methylPREDNISolone SS 125 MG/2 ML VIAL IVP SCH (05:00)
[2018-04-17] MEDS: ACETAMINOPHEN 325 MG TAB PO PRN (05:38)
[2018-04-17] MEDS: ALBUTEROL SULFATE/IPRATROPIU 3 ML SOL IH SCH ×2 (05:38→13:28)
[2018-04-17] MEDS: LORazepam 0.5 MG TAB PO PRN ×2 (05:39→14:22)
--- NOTE | 2018-04-17 06:40 | NUR ---
ADMIN ADIVAN 1 HR AGO. PT SEEMS LESS ANXIOUS WILL CONTINUE TO MONITOR.
[2018-04-17 06:59] LABS: BASOPHILS % (AUTO) 0.4 % (0.0-2.0); EOSINOPHILS # (AUTO) 1.1 K/uL (0-0.4); EOSINOPHILS % (AUTO) 12.4 % (0.0-4.0); HEMATOCRIT 34.3 % (36-48); HEMOGLOBIN 11.1 g/dL (12.0-16.0); LYMPHOCYTES # (AUTO) 3.5 K/uL (2.5-16.5); LYMPHOCYTES % (AUTO) 38.9 % (20.5-51.1); MEAN CORPUSCULAR HEMOGLOBIN 24 pg (27-31); MEAN CORPUSCULAR HGB CONC 32 g/dL (33-37); MEAN CORPUSCULAR VOLUME 72.9 fL (80-94); MONOCYTES # (AUTO) 0.6 K/uL (0.8-1.0); MONOCYTES % (AUTO) 6.8 % (1.7-9.3); NEUTROPHILS # (AUTO) 3.7 K/uL (1.8-7.7); NEUTROPHILS % (AUTO) 41.5 % (42.2-75.2); PLATELET COUNT (AUTO) 283 K/uL (140-450); RED BLOOD CELL COUNT(AUTO) 4.71 MIL/uL (4.20-5.40); RED CELL DISTRIBUTION WIDTH 19.3 % (11.6-13.7)
[2018-04-17 07:29] LABS: ANION GAP 10.8 (8-16); CARBON DIOXIDE 26.7 mmol/L (21-32); CREATININE 0.8 mg/dL (0.6-1.3); POTASSIUM 3.5 mmol/L (3.5-5.1)
--- NOTE | 2018-04-17 07:33 | NUR ---
[facility] AT BEDSIDE FOR CONTINUITY OF CARE.
[2018-04-17 08:00] VITALS: BP 128/87
[2018-04-17] MEDS ORDERED: FERROUS SULFATE 325 MG TABEC PO SCH (08:00)
[2018-04-17] MEDS ORDERED: ESCI20TA47 PO (08:37)
[2018-04-17] MEDS ORDERED: AMLO5TAB4 PO (08:37)
[2018-04-17] MEDS ORDERED: LORA-476 PO (08:37)
[2018-04-17] MEDS ORDERED: FER325 PO (08:37)
[2018-04-17] MEDS ORDERED: QUET25TA46 PO (08:37)
--- NOTE | 2018-04-17 08:47 | NUR ---
CM NOTE FAXED ORDER FOR SNF FOR PT TO [facility] [phone]. PER KELLEE CASTAÑEDA PH# [phone], PATIENT HAS BEEN SPENDING TIME AT HOSPITALS MORE RECENTLY THAN IN HER OWN HOME AND THAT SHE WAS RECENTLY SENT TO [facility] AND LEFT AMA IN 24 HRS. 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 DR. BRICE KOHLI. RECEIVED ORDER FOR HOME HEALTH FOR PT. [facility] [phone]. PER KELLEE CASTAÑEDA, PATIENT WAS PREVIOUSLY WITH [facility] AND SHE SAID SHE WILL CALL BACK TO CONFIRM IF HOME HEALTH IS APPROVED AND TO WHICH HOME HEALTH PATIENT HAS BEEN ARRANGED IF APPROVED. Addendum: 04/17/18 at 1039 by Marci Kearns FAXED PT EVALUATION TO [facility] [employer] [facility] [phone].
[2018-04-17] MEDS ORDERED: QUEtiapine FUMARATE 25 MG TAB PO SCH (09:00)
[2018-04-17] MEDS: MULTIVITAMIN 1 TAB PO SCH (09:02)
[2018-04-17] MEDS: levETIRAcetam 500 MG TAB PO SCH (09:02)
[2018-04-17] MEDS: ASPIRIN 81 MG TAB.CHEW PO SCH (09:02)
[2018-04-17] MEDS: ESCITALOPRAM 20 MG TAB PO SCH (09:03)
[2018-04-17] MEDS: amLODIPine 5 MG TAB PO SCH (09:03)
[2018-04-17] MEDS: NYSTATIN/TRIAMCINOLONE CRM 15 GM TUBE TP SCH (09:04)
--- NOTE | 2018-04-17 10:38 | NUR ---
CM NOTE FAXED CONCURRENT REVIEW TO [facility] [phone] KELLEE CASTAÑEDA PH# [phone]
--- NOTE | 2018-04-17 11:02 | NUR ---
Renal Case Manager Note: I called Nando from at [facility] , [facility] and [facility] to tell her patient no longer needs snf placement, no answer, left message.
--- NOTE | 2018-04-17 12:15 | NUR ---
PHYSICAL THERAPY CO-SIGN The Physical Therapy Progress Notes documented by Securities Dealer have been reviewed. I concur with the documentation of this MANUFACTURING TECHNOLOGY PROFESSOR. Plan: continue PT as per plan of care if she remains in this hospital. Reviewed/Co-Signed by: Bailey Ramirez DPT Documentation Done by: Dashawn Ortega, MANUFACTURING TECHNOLOGY PROFESSOR Addendum: 04/17/18 at 1244 by Bailey Ramirez PT Amended: Links added.
--- NOTE | 2018-04-17 12:29 | NUR ---
PT'S CAREGIVER WILL BE HERE AT 1600 TO PICK PT UP. WILL START ON D/C. PT ASKED ABOUT [facility] AND GETTING MORE HOURS OF CARE. NOTIFIED PT TO CALL [facility] AND REQUEST ASSESSMENT. WILL CONTINUE TO MONITOR PT.
[2018-04-17 12:38] LABS: FOLIC ACID 6.6 ng/mL (>3.0)
--- NOTE | 2018-04-17 13:05 | NUR ---
CM NOTE PER [facility] CM COORDINATOR DOLORES PH# [phone], HOME HEALTH HAS BEEN ARRANGED WITH [facility] PH# [phone]. [facility] AND INFORMED [facility] OF DISCHARGE ORDER TODAY. Addendum: 04/17/18 at 1356 by Marci Kearns CM HSAW MCKEON AWARE.
--- NOTE | 2018-04-17 14:30 | NUR ---
ADMINISTERED ATIVAN REQUESTED. TOLERATED WELL. WILL CONTINUE TO MONITOR PT.
--- NOTE | 2018-04-17 15:30 | NUR ---
PT IS LESS AGITATED, LESS ANXIOUS PER PT. WILL CONTINUE TO MONITOR PT.
--- NOTE | 2018-04-17 15:45 | NUR ---
Mother'S Helper Note: Late entry for 04/16/18: I met with patient at bedside. Per patient, she lives at home with her caregiver Cherrie and Cherrie's two daughters, ages 14 and 17. She stated she would like to return home upon discharge. She reported she is able to financially able to pay her rent and does not have any financial issues at this time. She stated she was discharged from [facility] recently, she is unable to recall exact date but stated it was this month. She told me Cherrie cooks for her, drives her to her pcp's office, and picks up her medication from pharmacy. She stated she is able to shower and get dressed independently without any difficulty. She expressed that at times she is unable distinguish between reality and illusion. She stated she is planning to follow up with a psychologist/psychiatrist post discharge, she reported she is not seeing a psychiatrist/psychologist at this time. She denied SI and/or HI. Addendum: 04/18/18 at 0939 by Erma Cuenca SS Late entry for 04/16/18: I provided patient with education on two home care programs, [facility] and [facility] , [facility] is a program for individuals who have [employer] coverage without a share of cost (patient has [employer]), are 55 years old, need home care assistance, transportation, medication management, and mental health services. If patients have [employer] coverage without share of cost and qualify for [facility] the services are at no cost to patients. I offered to refer patient to [facility], however, patient declined my assistance and stated her needs are met and has no issues with her current caregiver Cherrie. She refused to accept [facility] brochure.
[2018-04-17 16:00] VITALS: BP 137/86
--- NOTE | 2018-04-17 16:00 | NUR ---
GAVE D/C INSTRUCTIONS TO PT. PT VERBALIZED UNDERSTANDING. REMOVED IV AND ID BANDS. NO BLEEDING NOTED, CANNULA INTACT. WILL GET DRESSED AND GATHER PERSONAL BELONGINGS. WILL AWAIT TEACHERS AIDE.
--- NOTE | 2018-04-17 16:40 | NUR ---
TURNING AND BEADING MACHINE OPERATOR CAME. WENT OVER MEDICATIONS WITH PT AND CAREGIVER. VERBALIZED UNDERSTANDING.
--- NOTE | 2018-04-17 17:00 | NUR ---
PT WHEELCHAIRED OUT TO THE CAR. CLASSIFIER TENDER IN THE CAR. PT HAS PERSONAL BELONGINGS IN HAND. PT IN STABLE CONDITION.
[2018-04-18] MEDS ORDERED: methylPREDNISolone SS 40 MG/ML VIAL IVP SCH (05:00)
[2018-04-18] MEDS ORDERED: SERT100T PO (07:48)
[2018-04-18] MEDS ORDERED: DULO60EC PO (07:48)
[2018-04-19] MEDS ORDERED: methylPREDNISolone SS 40 MG/ML VIAL IVP SCH (05:00)
== END 2018-04-17 17:00 | disposition home or self-care (01) | DRG 192 ==
LOC: MED 06:35 → MTU 10:18
PROVIDERS: ADMIT General Practice; ATTEND General Practice
DX: J44.1 Chronic obstructive pulmonary disease with (acute) exacerbation (principal); F41.9 Anxiety disorder, unspecified; E87.6 Hypokalemia; E83.41 Hypermagnesemia; M17.0 Bilateral primary osteoarthritis of knee; M47.896 Other spondylosis, lumbar region; D50.9 Iron deficiency anemia, unspecified; I10 Essential (primary) hypertension; G40.909 Epilepsy, unspecified, not intractable, without status epilepticus; Z88.0 Allergy status to penicillin; Z88.2 Allergy status to sulfonamides; Z88.8 Allergy status to other drugs, medicaments and biological substances; Z91.010 Allergy to peanuts; Z79.82 Long term (current) use of aspirin; Z77.29 Contact with and (suspected) exposure to other hazardous substances
CPT/HCPCS: 36415; 36600; 71045; 73560; 80048; 80053; 80305; 81003; 82150; 82607; 82728; 82746; 82803; 83036; 83540; 83690; 83735; 83880; 84100; 84439; 84443; 84484; 85025; 85045; 85610; 85730; 87040; 87081; 93005; 94640; 96365; 96366; 96375; 97116; 97535; 99291; J1100; J2060; J2930; J3475; J3480; J7030; J7620; Q0092

== ENCOUNTER 2018-04-18 07:24 | Emergency (ER) | payer OTHER, MEDICAID ==
[~2018-04-18] VITALS: Ht 165.1 cm; Wt 88.5 kg
[~2018-04-18 07:24] MED LIST changes: +AMLO5TAB4 PO; -ATI.5 PO; +ESCI20TA47 PO; +FER325 PO; +LORA-476 PO; -METO25TA PO; +QUET25TA46 PO; -SERT100T PO
[2018-04-18 07:26] VITALS: BP 96/64
[2018-04-18] MEDS ORDERED: SERT100T PO (07:48)
[2018-04-18] MEDS ORDERED: DULO60EC PO (07:48)
[2018-04-18] MEDS: LORazepam 1 MG TAB PO ONE (07:52)
[2018-04-18 09:38] VITALS: BP 98/51
== END 2018-04-18 09:37 | disposition home or self-care (01) ==
LOC: MED 07:24
DX: F41.9 Anxiety disorder, unspecified (principal); Z76.0 Encounter for issue of repeat prescription; J44.9 Chronic obstructive pulmonary disease, unspecified; I10 Essential (primary) hypertension; Z88.0 Allergy status to penicillin; Z88.2 Allergy status to sulfonamides; Z88.8 Allergy status to other drugs, medicaments and biological substances; Z79.899 Other long term (current) drug therapy
CPT/HCPCS: 99283

== ENCOUNTER 2018-04-19 11:05 | Emergency (ER) | payer OTHER, MEDICAID ==
[~2018-04-19] VITALS: Ht 167.6 cm; Wt 93.0 kg
[~2018-04-19 11:05] MED LIST changes: +ATI.5 PO; +DULO60EC PO; +METO25TA PO; +SERT100T PO
[2018-04-19 11:06] VITALS: BP 133/80
--- NOTE | 2018-04-19 11:09 | NUR ---
67 y.o female BIBA with c/o of headache, left eye pain, tinitis in left ear for 30 mins. Pt states that she is withdrawing from 8mg of Lorazepram everyday and wants to get help. Pt states that she is also having very bad anxiety. Pt is connected to the cardiac montior; NSR 93HR. s1s2 heard. Pt is able to move all of her extremities; full range of motion. Pt abd is soft, nontender, active bowel sounds in all 4 quadrants. PERRL. Strength is 5+ upper and lower extremities. Bilaterally lungs are clear. Pt was recently admitted to the hospital on the 24, discharged 25th for anxiety, COPD exacerbation. Pt hx: COPD, Asthma, depression Pt allergies: PNA, Sulfa
--- NOTE | 2018-04-19 11:21 | NUR ---
Dr. Vital at bedside evaluating pt
[2018-04-19] MEDS ORDERED: KETOROLAC 60 MG/2 ML VIAL IM ONE (11:25)
[2018-04-19 11:58] VITALS: BP 134/97
--- NOTE | 2018-04-19 11:58 | NUR ---
D/c pt home; reviewed pt discharge packet; educated pt on s/sx of when to return, call 911, call PCP. Went over new RX regiment, side effects. Discharge vitals were taken. Pt ambulated to exit and left in a cab.
== END 2018-04-19 11:58 | disposition home or self-care (01) ==
LOC: MED 11:05
DX: R51 Headache (principal); R07.9 Chest pain, unspecified; R06.02 Shortness of breath; F41.9 Anxiety disorder, unspecified; J44.9 Chronic obstructive pulmonary disease, unspecified; I10 Essential (primary) hypertension; Z88.0 Allergy status to penicillin; Z88.2 Allergy status to sulfonamides; Z91.010 Allergy to peanuts; Z79.899 Other long term (current) drug therapy; Z79.82 Long term (current) use of aspirin
CPT/HCPCS: 93005; 99283; J1885